=== PATIENT | female | born 1955 | race Caucasian/White ===

== ENCOUNTER → 2016-09-22 | Outpatient (CLI) | payer OTHER | END | disposition home or self-care (01) | LOC: CT 17:45 | PROC: BW24ZZZ Computerized Tomography (CT Scan) of Chest and Abdomen (ICD-10-PCS; principal; 2016-09-22) | DX: R09.1 Pleurisy (principal); R06.02 Shortness of breath ==

== ENCOUNTER → 2017-01-04 | Outpatient (CLI) | payer OTHER | END | disposition home or self-care (01) | LOC: MA 17:00 | PROC: BH02ZZZ Plain Radiography of Bilateral Breasts (ICD-10-PCS; principal; 2017-01-04) | DX: Z12.31 Encounter for screening mammogram for malignant neoplasm of breast (principal) | CPT/HCPCS: G0204 ==

== ENCOUNTER → 2017-02-07 | Outpatient (CLI) | payer OTHER | END | disposition home or self-care (01) | LOC: US 16:00 | PROC: BH41ZZZ Ultrasonography of Left Breast (ICD-10-PCS; principal; 2017-02-07) | DX: R92.2 Inconclusive mammogram (principal) | CPT/HCPCS: 76641; 76642 ==

== ENCOUNTER → 2017-03-02 | Outpatient (CLI) | payer OTHER | END | disposition home or self-care (01) | LOC: RD 16:14 | DX: M54.2 Cervicalgia (principal) ==

== ENCOUNTER 2017-03-28 06:33 | Day surgery (SDC) | payer OTHER ==
[~2017-03-28] VITALS: Ht 167.6 cm; Wt 113.4 kg
[2017-03-28 07:05] VITALS: BP 151/63
[2017-03-28 09:20] VITALS: BP 131/72
== END 2017-03-28 09:15 | disposition home or self-care (01) ==
LOC: GI 06:33 → OR 07:30 → GI 07:30
PROVIDERS: Internal Medicine Gastroenterology
PROC: 0DB18ZX Excision of Upper Esophagus, Via Natural or Artificial Opening Endoscopic, Diagnostic (ICD-10-PCS; principal; 2017-03-28 07:30)
PROC: 0DB68ZX Excision of Stomach, Via Natural or Artificial Opening Endoscopic, Diagnostic (ICD-10-PCS; 2017-03-28 07:30)
DX: K21.9 Gastro-esophageal reflux disease without esophagitis (principal); K44.9 Diaphragmatic hernia without obstruction or gangrene
CPT/HCPCS: 43235; J1200; J1610; J2250; J2310; J3010; J3490

== ENCOUNTER → 2017-08-30 | Outpatient (CLI) | payer OTHER | END | disposition home or self-care (01) | LOC: RD 16:51 | DX: M25.511 Pain in right shoulder (principal) ==

== ENCOUNTER → 2017-09-26 | Outpatient (CLI) | payer OTHER | END | disposition home or self-care (01) | LOC: RD 13:52 | DX: R05 Cough (principal) ==

== ENCOUNTER 2017-12-18 12:55 | Inpatient (IN) | payer OTHER ==
[~2017-12-18] VITALS: Ht 167.6 cm; Wt 119.3 kg
[2017-12-18 13:00] VITALS: Ht 167.6 cm; Wt 119.3 kg
[2017-12-18 14:35] LABS: BASOPHIL % 0.5 % (0-2); PLATELET COUNT 389 x10^3mcL (130-400)
[2017-12-18 14:49] LABS: CALCIUM 8.3 mg/dL (8.5-10.1); CARBON DIOXIDE 26.3 mmol/L (21-32); CHLORIDE SERUM 102 mmol/L (98-107); CREATININE SERUM 0.9 mg/dL (0.6-1.0); GFR1 > 60 mL/min; GLUCOSE SERUM 106 mg/dL (74-106); SODIUM SERUM 139 mmol/L (136-145)
[2017-12-18 15:02] LABS: ALBUMIN 3.6 g/dL (3.4-5.0); ALKALINE PHOSPHATASE 77 U/L (46-116); AMYLASE 62 U/L (25-115); AST/SGOT 19 U/L (15-37); BILIRUBIN TOTAL 0.4 mg/dL (0.20-1.00); LIPASE 960 IU/L (73-393); T4(THYROXINE) 8.5 ug/dL (4.7-13.3); TOTAL PROTEIN, SERUM 7.4 g/dL (6.4-8.2)
[2017-12-18 15:03] LABS: CHOLESTEROL 128 mg/dL (<200); HDL CHOLESTEROL 63 mg/dL (40-60)
[2017-12-18 15:14] LABS: UA SPECIFIC GRAVITY 1.015 (1.005-1.035); microscopic required? YES; urine erythrocyte NEGATIVE (NEGATIVE)
[2017-12-18 15:22] LABS: AMPHETAMINE QUAL UR NONE DETECTED (See below)
[2017-12-18 15:22] LABS: ALT/SGPT 21 U/L (14-59)
[2017-12-18] MEDS ORDERED: ZESTRIL5 MG PO (15:45)
[2017-12-18] MEDS ORDERED: POTASSIUM CHLO10 MEQ (15:45)
[2017-12-18] MEDS ORDERED: SINGULAIR4 MG/Packe PO (15:45)
[2017-12-18] MEDS ORDERED: LIPITOR10 MG (15:45)
[2017-12-18 16:25] LABS: T3 TOTAL 1.09 ng/mL
[2017-12-18 16:50] LABS: FREE T4 1.05 ng/dL (0.76-1.46); FREE THYROXINE INDEX 2.4 ug/dL (1.4-4.5)
[2017-12-18 16:58] VITALS: BP 165/76
[2017-12-18 19:30] VITALS: BP 131/55
[2017-12-19 05:17] VITALS: BP 117/59
[2017-12-19 06:46] LABS: BASOPHIL % 0.4 % (0-2); PLATELET COUNT 357 x10^3mcL (130-400); RED CELL DISTRIBUTION WIDTH 12.8 % (11.5-14.5)
[2017-12-19 06:59] LABS: CALCIUM 7.9 mg/dL (8.5-10.1); CARBON DIOXIDE 29.7 mmol/L (21-32); CHLORIDE SERUM 106 mmol/L (98-107); CREATININE SERUM 0.9 mg/dL (0.6-1.0); GFR1 > 60 mL/min; GLUCOSE SERUM 112 mg/dL (74-106); PHOSPHOROUS 2.7 mg/dL (2.5-4.9); POTASSIUM SERUM 3.7 mmol/L (3.5-5.1); SODIUM SERUM 142 mmol/L (136-145)
[2017-12-19 09:53] VITALS: BP 142/82
[2017-12-19 13:18] VITALS: BP 140/71
[2017-12-19 17:27] VITALS: BP 149/82
[2017-12-19 21:14] VITALS: BP 139/77
[2017-12-20 05:55] VITALS: BP 120/70
[2017-12-20 06:57] LABS: BASOPHIL % 0.1 % (0-2); PLATELET COUNT 306 x10^3mcL (130-400); RED CELL DISTRIBUTION WIDTH 12.8 % (11.5-14.5)
[2017-12-20 07:23] LABS: ALKALINE PHOSPHATASE 67 U/L (46-116); ALT/SGPT 20 U/L (14-59); AST/SGOT 14 U/L (15-37); BILIRUBIN TOTAL 0.48 mg/dL (0.20-1.00); CALCIUM 8.6 mg/dL (8.5-10.1); CARBON DIOXIDE 26.9 mmol/L (21-32); CHLORIDE SERUM 107 mmol/L (98-107); GFR1 > 60 mL/min; GLUCOSE SERUM 127 mg/dL (74-106); LIPASE 393 IU/L (73-393); POTASSIUM SERUM 3.7 mmol/L (3.5-5.1); SODIUM SERUM 142 mmol/L (136-145); TOTAL PROTEIN, SERUM 6.6 g/dL (6.4-8.2)
[2017-12-20 08:15] VITALS: BP 124/67
[2017-12-20] MEDS ORDERED: PROTONIX40 MG/Pac1 PO (11:18)
[2017-12-20] MEDS ORDERED: REG5 PO (11:18)
[2017-12-20] MEDS ORDERED: MIRUD PO (11:18)
[2017-12-20] MEDS ORDERED: MONTELUKAST SOD10 M1 PO (11:18)
[2017-12-20] MEDS ORDERED: PAN PO (11:18)
[2017-12-20 12:34] VITALS: BP 135/70
== END 2017-12-20 14:16 | disposition home or self-care (01) | DRG 371 ==
LOC: ED 12:55 → DU 15:36
PROVIDERS: Emergency Medicine; Family Medicine; Internal Medicine
PROC: 3E0234Z Introduction of Serum, Toxoid and Vaccine into Muscle, Percutaneous Approach (ICD-10-PCS; principal; 2017-12-20)
DX: K65.9 Peritonitis, unspecified (principal); K85.90 Acute pancreatitis without necrosis or infection, unspecified; Z68.41 Body mass index [BMI] 40.0-44.9, adult; K86.1 Other chronic pancreatitis; I10 Essential (primary) hypertension; E78.00 Pure hypercholesterolemia, unspecified; K44.9 Diaphragmatic hernia without obstruction or gangrene; K21.9 Gastro-esophageal reflux disease without esophagitis; E66.01 Morbid (severe) obesity due to excess calories; G43.909 Migraine, unspecified, not intractable, without status migrainosus; E11.65 Type 2 diabetes mellitus with hyperglycemia; G47.33 Obstructive sleep apnea (adult) (pediatric); Z82.49 Family history of ischemic heart disease and other diseases of the circulatory system; Z79.899 Other long term (current) drug therapy; Z99.81 Dependence on supplemental oxygen; Z23 Encounter for immunization
CPT/HCPCS: 83880; 84439; 90732; A9577; J2060; J3490; J7030; J8597; Q0092; Q9967

== ENCOUNTER → 2018-07-18 | Outpatient (CLI) | payer OTHER ==
[~2018-07-18] MED LIST: LIPITOR10 MG; MIRUD PO; MONTELUKAST SOD10 M1 PO; PAN PO; POTASSIUM CHLO10 MEQ; PROTONIX40 MG/Pac1 PO; REG5 PO; SINGULAIR4 MG/Packe PO; ZESTRIL5 MG PO
== END | disposition home or self-care (01) ==
LOC: MA 14:43
PROC: BH02ZZZ Plain Radiography of Bilateral Breasts (ICD-10-PCS; principal; 2018-07-18)
DX: Z12.31 Encounter for screening mammogram for malignant neoplasm of breast (principal)
CPT/HCPCS: 77066

== ENCOUNTER 2018-12-08 13:13 | Emergency (ER) | payer OTHER ==
[~2018-12-08] VITALS: Ht 167.6 cm; Wt 121.6 kg
[2018-12-08 13:38] VITALS: Ht 167.6 cm; Wt 121.6 kg
[2018-12-08 14:08] VITALS: BP 158/74
== END 2018-12-08 14:08 | disposition home or self-care (01) ==
LOC: ED 13:13
DX: K08.89 Other specified disorders of teeth and supporting structures (principal); I10 Essential (primary) hypertension; K21.9 Gastro-esophageal reflux disease without esophagitis

== ENCOUNTER 2019-02-02 10:18 | Emergency (ER) | payer OTHER ==
[~2019-02-02] VITALS: Ht 167.6 cm; Wt 117.5 kg
[2019-02-02 10:42] VITALS: BP 125/73; Ht 167.6 cm; Wt 117.5 kg
== END 2019-02-02 12:42 | disposition home or self-care (01) ==
LOC: ED 10:18
DX: S61.551A Open bite of right wrist, initial encounter (principal); I10 Essential (primary) hypertension; K21.9 Gastro-esophageal reflux disease without esophagitis; W55.01XA Bitten by cat, initial encounter; Y93.89 Activity, other specified; Y92.89 Other specified places as the place of occurrence of the external cause; Y99.8 Other external cause status
CPT/HCPCS: 90715

== ENCOUNTER → 2020-03-20 | Outpatient (CLI) | payer OTHER | END | disposition home or self-care (01) | LOC: MA 15:13 | PROC: BH02ZZZ Plain Radiography of Bilateral Breasts (ICD-10-PCS; principal; 2020-03-20) | DX: Z12.31 Encounter for screening mammogram for malignant neoplasm of breast (principal); R92.8 Other abnormal and inconclusive findings on diagnostic imaging of breast | CPT/HCPCS: 77066 ==